=== PATIENT | female | born 1955 | race African-American/Black ===

== ENCOUNTER 2021-09-13 17:09 | Emergency (ER) | payer OTHER ==
[~2021-09-13] VITALS: Ht 170.2 cm; Wt 100.0 kg
[2021-09-13 17:20] VITALS: BP 106/52
== END 2021-09-13 22:20 | disposition left against medical advice (07) ==
LOC: ER 17:09
DX: R06.09 Other forms of dyspnea (principal); I10 Essential (primary) hypertension; Z53.21 Procedure and treatment not carried out due to patient leaving prior to being seen by health care provider
CPT/HCPCS: 93005; 99283

== ENCOUNTER 2022-09-20 14:21 | Emergency (ER) | payer OTHER ==
[~2022-09-20] VITALS: Ht 170.2 cm; Wt 84.0 kg
[2022-09-20] MEDS ORDERED: CEFTRIAXONE 1 G PREMIX 50 ML IV ONE (14:45)
[2022-09-20] MEDS ORDERED: VANCOMYCIN 1G PREMIX 200 ML IV SCH (14:45)
[2022-09-20] MEDS ORDERED: ACETAMINOPHEN 325MG TABLET PO ONE (15:15)
[2022-09-20 15:57] LABS: HEMATOCRIT. 43.3 % (36.0-48.0); HEMOGLOBIN. 14.2 g/dL (12.0-16.0); MEAN CORPUSCULAR HEMOGLOBIN 29.3 pg (28.0-32.0); MEAN CORPUSCULAR VOLUME 89.4 fL (81.0-99.0); PLATELET 137 x1000/uL (130-400); RED BLOOD CELL COUNT 4.84 mill/uL (4.2-5.4); RED CELL DISTRIBUTION WIDTH 15.5 % (11.6-14.6)
[2022-09-20 16:00] LABS: INR 1.1; PROTHROMBIN TIME 11.6 sec (9.6-11.0)
[2022-09-20 16:12] LABS: CHLORIDE 106 mEq/L (98-107)
[2022-09-20] MEDS ORDERED: SODIUM CHLORIDE 0.9% 500 ML IV ONE (16:45)
[2022-09-20] MEDS ORDERED: TETANUS, DIPHTHERIA, PERTUSSIS VAC/PF 0.5ML (>10YR OLD) IM ONE (17:00)
[2022-09-20 17:49] LABS: PLATELET ESTIMATE NORMAL
[2022-09-20 22:42] VITALS: BP 158/90
== END 2022-09-20 23:15 | disposition short-term general hospital (02) ==
LOC: ER 14:21 → EDBEDREQ 15:10 → ER 23:15 → CANBEDREQ 09-21 03:32
DX: R62.7 Adult failure to thrive (principal); R26.89 Other abnormalities of gait and mobility; I10 Essential (primary) hypertension; Z68.29 Body mass index [BMI] 29.0-29.9, adult; W18.30XA Fall on same level, unspecified, initial encounter; Y93.89 Activity, other specified; Y92.89 Other specified places as the place of occurrence of the external cause; Y99.8 Other external cause status
CPT/HCPCS: 36415; 73590; 73610; 73630; 80053; 84145; 85025; 85610; 87040; 90471; 90715; 93971; 96361; 96365; 96367; 99285; J0696; Z7610